=== PATIENT | male | born 1960 | race Caucasian/White ===

== ENCOUNTER 2017-11-23 17:58 | Emergency (ER) | END 2017-11-23 22:20 | disposition home or self-care (01) ==

== ENCOUNTER 2017-12-02 11:04 | Emergency (ER) | END 2017-12-02 14:18 | disposition home or self-care (01) ==

== ENCOUNTER 2018-10-13 13:06 | Emergency (ER) | payer MEDICAID ==
[~2018-10-13] VITALS: Ht 165.1 cm; Wt 54.5 kg
[~2018-10-13 13:06] MED LIST: POLY17PO6 PO
[2018-10-13 13:22] VITALS: Ht 165.1 cm; Wt 54.5 kg
--- NOTE | 2018-10-13 13:47 | ERD ---
ER Documentation Chief Complaint Chief Complaint abdominal pain and coffee ground emesis today HPI 57-year-old male history of chronic alcohol and nicotine abuse presents to the ED via rescue ambulance complaining of a 2-day history of generalized weakness, crampy, burning, mild, nonradiating upper abdominal pain, nausea and vomiting with coffee-grounds. Vomiting and hematemesis. Chronic constipation last bowel movement was 3 days ago, no melena. Denies chest pain, palpitations or shortness of breath. No cough or hemoptysis. No headache, visual changes, focal weakness or numbness. No fevers or chills. ROS All systems reviewed and are negative except as per history of present illness. Medications Home Meds Active Scripts Polyethylene Glycol* (Miralax*) 17 Gm Powd.pack, 17 GM PO DAILY, #7 Prov:ENEIDA CHONG MD 10/13/18 Famotidine* (Pepcid*) 20 Mg Tablet, 20 MG PO BID for 14 Days, TAB Prov:ENEIDA CHONG MD 10/13/18 Discontinued Scripts Polyethylene Glycol* (Miralax*) 17 Gm Powd.pack, 17 GM PO DAILY, #30 PACKET Prov:MARTÍNEZ BLAIR MD 12/02/17 Allergies Allergies: Coded Allergies: No Known Allergies (Verified Allergy, Mild, 10/13/18) PMhx/Soc Reviewed in chart. As per HPI. History of Surgery: No Anesthesia Reaction: No Hx Neurological Disorder: No Hx Respiratory Disorders: No Hx Cardiac Disorders: Yes (angina) Hx Psychiatric Problems: Yes (anxiety) Hx Miscellaneous Medical Probl: Yes (Constipation, Homelessness-states lost house, , and job in past 2 years) Hx Alcohol Use: Yes (3x per week) Hx Substance Use: No Hx Tobacco Use: Yes (1/2 pack per day) Smoking Status: Current every day smoker FmHx No cancer or stroke or heart disease Physical Exam Vitals Vital Signs Date Temp Pulse Resp B/P (MAP) Pulse Ox O2 O2 Flow FiO2 Time Delivery Rate 10/13/18 103 17 111/68 100 Room Air 16:52 (82) 10/13/18 88 17 117/74 98 Room Air 14:07 (88) 10/13/18 98.1 76 18 103/57 98 13:22 (72) Physical Exam Const: No acute distress Head: Atraumatic Eyes: Normal Conjunctiva. Anicteric ENT: Normal External Ears, Nose and Mouth. Neck: Full range of motion. No meningismus. Resp: Clear to auscultation bilaterally Cardio: Regular rate and rhythm, no murmurs Abd: Soft, mild epigastric tenderness but no rebound or guarding. Non distended. Normal bowel sounds Skin: No petechiae or rashes Back: No midline or flank tenderness Ext: No cyanosis, or edema Neur: Awake and alert. No focal deficit. Psych: Anxious but not depressed. Result Diagram: 10/13/18 1358 10/13/18 1358 Results 24 hrs Laboratory Tests Test 10/13/18 13:58 White Blood Count 11.4 10^3/ul Red Blood Count 4.70 10^6/ul Hemoglobin 15.2 g/dl Hematocrit 43.1 % Mean Corpuscular Volume 91.7 fl Mean Corpuscular Hemoglobin 32.3 pg Mean Corpuscular Hemoglobin Concent 35.3 g/dl Red Cell Distribution Width 13.6 % Platelet Count 231 10^3/UL Mean Platelet Volume 9.2 fl Immature Granulocytes % 0.300 % Neutrophils % 79.6 % Lymphocytes % 13.7 % Monocytes % 5.9 % Eosinophils % 0.1 % Basophils % 0.4 % Nucleated Red Blood Cells % 0.0 /100WBC Immature Granulocytes # 0.030 10^3/ul Neutrophils # 9.1 10^3/ul Lymphocytes # 1.6 10^3/ul Monocytes # 0.7 10^3/ul Eosinophils # 0.0 10^3/ul Basophils # 0.1 10^3/ul Nucleated Red Blood Cells # 0.0 10^3/ul Prothrombin Time 12.7 Sec Prothrombin Time Ratio 1.0 INR International Normalized Ratio 0.94 Activated Partial Thromboplast Time 30.6 Sec Sodium Level 137 mmol/L Potassium Level 3.6 mmol/L Chloride Level 102 mmol/L Carbon Dioxide Level 22 mmol/L Anion Gap 13 Blood Urea Nitrogen 7 mg/dl Creatinine 0.70 mg/dl Est Glomerular Filtrat Rate mL/min > 60 mL/min Glucose Level 124 mg/dl Calcium Level 9.0 mg/dl Total Bilirubin 0.3 mg/dl Direct Bilirubin 0.00 mg/dl Indirect Bilirubin 0.3 mg/dl Aspartate Amino Transf (AST/SGOT) 19 IU/L Alanine Aminotransferase (ALT/SGPT) 14 IU/L Alkaline Phosphatase 61 IU/L Troponin I < 0.012 ng/ml Total Protein 8.0 g/dl Albumin 4.5 g/dl Globulin 3.50 g/dl Albumin/Globulin Ratio 1.28 Procedures/MDM DOCUMENTS REVIEWED: ED nurse, prior records EKG: Time: 1358. Sinus rhythm. Ventricular rate 89, normal NV and QRS intervals. No acute ST segment elevation or depression. No axis deviation or ectopy. My Interpretation: Normal EKG Observation Note: Time: 3.5 hours Family Hx: No Hypertension Evaluation: Multiple exams showed improving symptoms and no evidence of an acute intra-abdominal process, hemodynamic instability, significant blood loss or ongoing GI bleeding. MED[employer] DECISION [employer]KIN-year-old male history of chronic alcohol and nicotine abuse presents to the ED via rescue ambulance complaining of a 2-day history of generalized weakness, crampy, burning, mild, nonradiating upper abdominal pain, nausea and vomiting with coffee-grounds. CBC reveals borderline leukocytosis but no anemia or thrombocytopenia. Chemistry to evaluate for electrolyte abnormalities, renal insufficiency and hyperglycemia is unremarkable. No hyperbilirubinemia or transaminitis. EKG is negative for ischemia or dysrhythmia. Troponin is negative. Abdominal exam is essentially benign without significant tenderness, rebound, guarding, signs of peritonitis or an occult intra-abdominal process including but not limited to appendicitis, diverticulitis, bowel obstruction and perforated viscus hence CT scan is not indicated. Patient complained of coffee-ground emesis but his hemoglobin/hematocrit is normal. Hemodynamically stable. There is no signs of significant or active bleeding. Symptoms improved with H2 blockers. Chronic constipation without signs of obstruction. Stable for discharge with precautionary instructions and outpatient follow-up as counseled.. Smoking Cessation Therapy: Pt. was lectured for greater than 3 minutes on the health risks of continued smoking and the benefits of cessation. Counseled patient regarding diagnosis, diagnostic results and plan for admission. Departure Diagnosis: Primary Impression: Coffee ground emesis Additional Impressions: Acute gastritis Gastritis type: alcoholic Gastritis bleeding: presence of bleeding unspecified Qualified Codes: K29.20 - Alcoholic gastritis without bleeding Chronic alcohol abuse Constipation Constipation type: unspecified constipation type Qualified Codes: K59.00 - Constipation, unspecified Condition: Stable ENEIDA CHONG MD Oct 13, 2018 13:47
[2018-10-13] MEDS ORDERED: POLY17PO6 PO (17:01)
[2018-10-13] MEDS ORDERED: FAMO-96 PO (17:01)
[2018-10-13 17:36] VITALS: BP 111/88; PULSE 89; RESP 17
== END 2018-10-13 17:36 | disposition home or self-care (01) ==
LOC: E/R 13:06
DX: K92.0 Hematemesis (principal); F17.210 Nicotine dependence, cigarettes, uncomplicated; K59.00 Constipation, unspecified; K29.20 Alcoholic gastritis without bleeding; F12.19 Cannabis abuse with unspecified cannabis-induced disorder; R10.84 Generalized abdominal pain
CPT/HCPCS: 36415; 80053; 84484; 85025; 85610; 85730; 86850; 86900; 86901; 93005; Z7502